=== PATIENT | male | born 1955 | race Caucasian/White ===

== ENCOUNTER 2020-11-17 22:45 | Emergency (ER) | payer SELFPAY ==
[2020-11-17] MEDS ORDERED: SODIUM CHLORIDE 0.9% 1000ML 1,000 ML IVS ONE (22:53)
[2020-11-17] MEDS ORDERED: SODIUM CHLORIDE 0.9% (FLUSH) 10 ML SYG IV PRN (22:53)
--- NOTE | 2020-11-18 01:25 | RAD ---
EXAM DESCRIPTION: X-ray single view chest. CLINICAL HISTORY: 64 years Male, shortness of breath, fever COMPARISON: None. TECHNIQUE: Single portable x-ray view of the chest performed on 11/18/2020 at 1:04 AM FINDINGS: The lungs are well-expanded. There is mild patchy interstitial prominence bilaterally with volume loss in the left lung base. Findings are nonspecific but could reflect edema, atelectasis, fibrosis and/or inflammatory changes. There is no evidence of a pneumothorax. The cardiac silhouette is normal in size and configuration. The mediastinal contours are normal. No acute osseous abnormality is identified. There are old bilateral rib fractures. There are remote postsurgical changes of the cervical spine. There are old bilateral clavicle fractures. No acute soft tissue abnormalities are seen. Lines and tubes: A tracheostomy cannula is present which terminates below the thoracic inlet and above the gurpreet. The tip is located approximately 6.8 cm above the gurpreet. IMPRESSION: 1. Mild patchy interstitial prominence bilaterally and volume loss in the left lung base. Findings are nonspecific and may reflect edema, atelectasis, fibrosis or inflammatory changes. 2. Old bilateral rib fractures and clavicle fractures. 3. The tip of the endotracheal tube terminates approximately 6.8 cm above the gurpreet and below the thoracic inlet. Electronically signed by: Breann Mistry DO 11/18/2020 1:23 AM [facility]
--- NOTE | 2020-11-18 01:40 | ED.PDOC ---
History of Present Illness - General Chief Complaint: Respiratory Problem Stated Complaint: low o2 sat Time Seen by Provider: 11/17/20 22:53 Source: RN notes reviewed, RN/MD, EMS Exam Limitations: clinical condition, physical impairment - History of Present Illness Initial Comments: The patient is a 64 year old transferred from [facility] for hypoxia. He is trach and vent dependent, currently being treated for pneumonia. The patient is non-verbal and unable to provide any history or complaints. Per EMS report, [facility] because the patient was noted to be febrile with hypoxia to mid 80s. No other history is available at this time. Home Medications: Ambulatory Orders Fluconazole 200 mg GT DAILY #14 tab 11/18/20 Review of Systems - Review of Systems Unable to Obtain Due To: intubated, clinical condition Past Medical History (General) - Patient Medical History Hx Seizures: No Hx Asthma: No - Vaccination History Hx Tetanus, Diphtheria Vaccination: Yes Hx Influenza Vaccination: Yes Hx Pneumococcal Vaccination: Yes Immunizations Up to Date: Yes - Social History Hx Alcohol Use: No - Activities of Daily Living Group Home/Assisted Living (if applicable):: [facility] Family Medical History - Family History Mother Family History: Unknown Physical Exam - Physical Exam General Appearance: Lethargic, Ill Appearing, Unkempt Eye Exam: bilateral normal ENT Exam: normal ENT inspection Neck: non-tender, supple, normal inspection, trachea midline Respiratory: respiratory distress - tachypneic, rales, rhonchi, other - tracheostomy dependent Cardiovascular/Chest: regular rate, rhythm Gastrointestinal/Abdominal: normal bowel sounds, non tender, soft, no organomegaly, no pulsatile mass, other - G-tube in place, colostomy in place and functioning Extremity: non-tender, normal inspection, no pedal edema Neurologic: other - obtunded, non-verbal, does not follow commands Skin Exam: warm/dry Progress - Progress Progress: 11/18/20 01:43 Patient transferred from [facility] for hypoxia. He is unable to provide any history but is reportedly at his baseline. He is tracheostomy dependent and he is being treated for pneumonia. Maintaining >95% oxygen saturation in the Emergency Department on vent. 11/18/20 02:01 Respiratory panel is negative. Evaluation as above. He has urinary tract infection and is receiving cefepime already via PICC line. His blood pressure has been soft but stable and his oxygenation has been okay on ventilator. No indication for re-admission to the hospital at this time. Will continue outpatie nt ventilator management and antibiotics at [facility]. - Results/Orders Results/Orders: 11/17/20 22:53 IV Care:Saline Lock per Protoc QSHIFT Telemetry .ONCE Sodium Chloride 0.9% (Flush) [Saline Flush Syringe] 10 ml IV PRN PRN URINE CULTURE W/COLONY COUNT Stat EKG Stat Pulse Ox Stat 11/17/20 23:15 BLOOD CULTURE Stat 11/17/20 23:59 URINE CULTURE W/COLONY COUNT Stat Laboratory Results - last 24 hr 11/17/20 11/17/20 11/17/20 22:53 23:15 23:15 WBC 19.7 H RBC 4.31 L Hgb 11.2 L Hct 36.3 L MCV 84.1 MCH 25.9 L MCHC 30.8 L RDW 19.9 H Plt Count 152 MPV 8.1 Absolute Neuts (auto) 18.10 H Absolute Lymphs (auto) 1.00 Absolute Monos (auto) 0.30 Absolute Eos (auto) 0.10 Absolute Basos (auto) 0.10 Neutrophils % 92.1 H Lymphocytes % 5.3 L Monocytes % 1.7 L Eosinophils % 0.6 L Basophils % 0.3 PT INR PTT (SP) pCO2 63 H pO2 86 HCO3 33.5 ABG pH 7.335 L ABG O2 Saturation 95.4 ABG Base Excess 5.9 ABG Deoxyhemoglobin 4.6 Oxyhemoglobin % 94.5 Carboxyhemoglobin % 0.6 Methemoglobin % Sat 0.3 Calc Total Hemoglobin 12.1 L Sodium 149 H Potassium 4.4 Chloride 111 Carbon Dioxide 32 H Anion Gap 10.4 L BUN 39 H Creatinine < 0.40 L BUN/Creatinine Ratio 97.0 H Random Glucose 119 H Serum Osmolality 306.7 H Lactic Acid Calcium 9.5 Total Bilirubin 0.3 AST 22 ALT 32 Alkaline Phosphatase 63 Creatine Kinase 103 CK-MB (CK-2) 2.7 CK-MB (CK-2) % Not Reportable Troponin I 0.02 Serum Total Protein 8.2 Albumin 2.5 L Globulin 5.7 H Albumin/Globulin Ratio 0.4 L Urine Color Urine Appearance Urine pH Ur Specific [place] Urine Protein Urine Glucose (UA) Urine Ketones Urine Blood Urine Nitrite Urine Bilirubin Urine Urobilinogen Ur Leukocyte Esterase Urine RBC Urine WBC Ur Epithelial Cells Urine Bacteria Urine Mucus Urine Yeast 11/17/20 11/17/20 11/17/20 23:15 23:15 23:59 WBC RBC Hgb Hct MCV MCH MCHC RDW Plt Count MPV Absolute Neuts (auto) Absolute Lymphs (auto) Absolute Monos (auto) Absolute Eos (auto) Absolute Basos (auto) Neutrophils % Lymphocytes % Monocytes % Eosinophils % Basophils % PT 11.3 H INR 1.14 PTT (SP) 21.4 L pCO2 pO2 HCO3 ABG pH ABG O2 Saturation ABG Base Excess ABG Deoxyhemoglobin Oxyhemoglobin % Carboxyhemoglobin % Methemoglobin % Sat Calc Total Hemoglobin Sodium Potassium Chloride Carbon Dioxide Anion Gap BUN Creatinine BUN/Creatinine Ratio Random Glucose Serum Osmolality Lactic Acid 1.3 Calcium Total Bilirubin AST ALT Alkaline Phosphatase Creatine Kinase CK-MB (CK-2) CK-MB (CK-2) % Troponin I Serum Total Protein Albumin Globulin Albumin/Globulin Ratio Urine Color Yellow Urine Appearance Sl cloudy Urine pH 5.0 Ur Specific [place] >= 1.030 Urine Protein 30 Urine Glucose (UA) Negative Urine Ketones Negative Urine Blood Trace-lysed H Urine Nitrite Negative Urine Bilirubin Negative Urine Urobilinogen 0.2 Ur Leukocyte Esterase Small H Urine RBC 3-5 H Urine WBC Tntc H Ur Epithelial Cells 0-1 Urine Bacteria 1+ Urine Mucus Moderate Urine Yeast 3+ budding 11/18/20 01:00 WBC RBC Hgb Hct MCV MCH MCHC RDW Plt Count MPV Absolute Neuts (auto) Absolute Lymphs (auto) Absolute Monos (auto) Absolute Eos (auto) Absolute Basos (auto) Neutrophils % Lymphocytes % Monocytes % Eosinophils % Basophils % PT INR PTT (SP) pCO2 pO2 HCO3 ABG pH ABG O2 Saturation ABG Base Excess ABG Deoxyhemoglobin Oxyhemoglobin % Carboxyhemoglobin % Methemoglobin % Sat Calc Total Hemoglobin Sodium Potassium Chloride Carbon Dioxide Anion Gap BUN Creatinine BUN/Creatinine Ratio Random Glucose Serum Osmolality Lactic Acid 1.1 Calcium Total Bilirubin AST ALT Alkaline Phosphatase Creatine Kinase CK-MB (CK-2) CK-MB (CK-2) % Troponin I Serum Total Protein Albumin Globulin Albumin/Globulin Ratio Urine Color Urine Appearance Urine pH Ur Specific [place] Urine Protein Urine Glucose (UA) Urine Ketones Urine Blood Urine Nitrite Urine Bilirubin Urine Urobilinogen Ur Leukocyte Esterase Urine RBC Urine WBC Ur Epithelial Cells Urine Bacteria Urine Mucus Urine Yeast Medical Decision Making: Patient presents from [facility] where he is intubated and being treated for pneumonia/UTI with cefepime. Primary concern for hypoxia. In the ED he has been able to maintain his oxygen saturation at appropriate levels. His blood pressure has been soft but stable. he does not have any lactic acidosis or evidence for end-organ damage. He was given normal saline and evaluated for COVID which was negative, no indication for steroids or other escalation of care. He has pulmonary infiltrates and urinary tract infection, is currently being treated with cefepime. I do not think he would benefit significantly from re-admission to the hospital at this time, okay to return to [facility] and continue current treatment plan. - EKG/XRAY/CT Comments: 2310 Normal sinus rhythym, nl axis, nl intervals, no STEMI Departure - Departure Clinical Impression: Respiratory failure Qualifiers: Chronicity: chronic Respiratory failure complication: hypoxia and hypercapnia Qualified Code(s): J96.11 - Chronic respiratory failure with hypoxia Urinary tract infection Qualifiers: Urinary tract infection type: catheter-associated UTI Indwelling urinary catheter type: indwelling urethral catheter Encounter type: initial encounter Qualified Code(s): T83.511A - Infection and inflammatory reaction due to indwelling urethral catheter, initial encounter Pneumonia Qualifiers: Pneumonia type: due to unspecified organism Laterality: bilateral Lung location: unspecified part of lung Qualified Code(s): J18.9 - Pneumonia, unspecified organism Time of Disposition: 02:07 Disposition: Discharge to SNF Condition: Fair Departure Forms: ED Discharge - Pt. Copy, Patient Portal Self Enrollment Diet: resume usual diet Activity: increase activity as tolerated Referrals: FLOR DUDLEY [Primary Care Provider] - 1-2 Weeks Prescriptions: Fluconazole 200 mg GT DAILY #14 tab Home Medications: Ambulatory Orders Fluconazole 200 mg GT DAILY #14 tab 11/18/20
[2020-11-18] MEDS ORDERED: FLUCONAZOLE 100 MG TAB GT ONE (02:10)
[2020-11-18 03:06] VITALS: BP 104/62; TEMP 99; O2SAT 95
== END 2020-11-18 03:08 ==
LOC: ER 22:45
DX: R51.9 Headache, unspecified (principal)
CPT/HCPCS: 36415; 36600; 71045; 80053; 81001; 82550; 82553; 82803; 82805; 83605; 84484; 85025; 85610; 85730; 87040; 87086; 87486; 87581; 87633; 87635; 93005; 94002; J7030

== ENCOUNTER 2020-11-22 02:16 | Emergency (ER) | payer SELFPAY ==
[2020-11-22] MEDS ORDERED: SODIUM CHLORIDE 0.9% (FLUSH) 10 ML SYG IV PRN ×2 (02:24→03:50)
[2020-11-22] MEDS ORDERED: SODIUM CHLORIDE 0.9% 1000ML 1,000 ML IVS ONE (02:24)
[2020-11-22] MEDS ORDERED: CEFEPIME 1 GM in SODIUM CHLORIDE 0.9% 50ML 50 ML IVPB ONE (02:25)
[2020-11-22] MEDS ORDERED: VANCOMYCIN HCL INJ 1,000 MG in SODIUM CHLORIDE 0.9% 250ML 250 ML IVPB ONE (02:26)
[2020-11-22] MEDS ORDERED: ACETAMINOPHEN SUPPOSITORY 650 MG PR ONE ×2 (02:31→02:32)
--- NOTE | 2020-11-22 02:32 | ED.PDOC ---
History of Present Illness - General Time Seen by Provider: 11/22/20 02:23 Source: RN notes reviewed, Vital Signs reviewed, EMS notes reviewed Additional Information: This is a 64-year-old male patient full code that presents to the ER because of altered mental status, low blood pressure, fever. This patient has been treated for excessive for the past [address] [facility], his mental status is usually more responsive but he is showing today, patient is been like this since 7 PM last night, patient responds to painful stimuli, but is tachypneic cold to touch, mottled skin. Chronic medical history of osteomyelitis, acute on chronic respiratory failure, bradycardia, and patient is already on a ventilator and with a tracheostomy - History of Present Illness Timing/Duration: other - since last nightr Improving Factors: nothing Worsening Factors: nothing Allergies/Adverse Reactions: Allergies NO KNOWN ALLERGY Allergy (Verified 11/22/20 02:31) Home Medications: Ambulatory Orders Fluconazole 200 mg GT DAILY #14 tab 11/18/20 Review of Systems - Review of Systems Constitutional: States: fever Unable to Obtain Due To: intubated Past Medical History (General) - Patient Medical History Hx Seizures: No Hx Asthma: No - Vaccination History Hx Tetanus, Diphtheria Vaccination: Yes Hx Influenza Vaccination: Yes Hx Pneumococcal Vaccination: Yes - Social History Hx Alcohol Use: No Family Medical History - Family History Mother Family History: Unknown Physical Exam - Physical Exam General Appearance: Other - acutelly ill Eye Exam: bilateral normal - sluggish Neck: supple Respiratory: other - tachypneic, tracheostomy Cardiovascular/Chest: other - diminished pulses Peripheral Pulses: radial,right: 1+, radial,left: 1+ Gastrointestinal/Abdominal: normal bowel sounds, no organomegaly, no pulsatile mass Back Exam: normal inspection Extremity: normal inspection, no pedal edema Neurologic: other - responds to painful stimuli Skin Exam: mottled, other, pallor Progress - Progress Progress: 64-year-old male patient, with history of respiratory failure on tracheostomy on the vent, presents to the ER because of low blood pressure respiratory distress altered mental status. This patient has been treated at the [facility] for sepsis for the past 2 weeks, he has been on cefepime, patient on physical examination looks acutely ill cool to touch mottled skin grade 2 sacral ulcer, and only withdraws to pain, Patient did have a fever here. They did a sepsis protocol, 30 cc/kg lactic acid was ordered blood cultures COVID-19 swab chest x- rays, urine, ekg and troponins. Because patient blood pressure was low he was put immediately on Levophed using a trilumen right internal jugular vein central catheter, patient found cefepime and vancomycin and rectal Tylenol. This patient will be treated for sepsis, obviously pending transfer to high-level care facility that might have a ICU available to take care of this patient. Inverted T waves in leads II, III, aVF and V6 11/22/20 03:18 11/22/20 04:00 Patient is COVID-19 negative, but patient does have evidence of multiple organ failure, with respiratory failure, cardiovascular collapse, and renal failure, patient potassium 7.50 hyperkalemia treatment was initiated, patient has evidence of elevated BUN and creatinine and also evidence of cardiac involvement with elevated troponins. Which could be due to sepsis itself pulmonary emboli or an actual heart attack Aspirin for acute coronary syndrome, [email or web address] will also is adequate treatment for non-ST elevation IL but also for potential PE since we cannot do a CTA due to the elevated kidney function, with still pending acceptance to an ICU Procedures - Central Line Right Internal jugular vein Central Line Lumen: triple Central Line Procedure Prep: betadine prep Anesthesia: local cc's of anesthesia: 5 Complications: none Central Line Post Position: sutured, good blood return, position confirmed w/ CXR Progress: sonoguided central line placement was done without any complications and under aseptic conditions Departure - Departure Clinical Impression: Multiple organ failure Sepsis Qualifiers: Sepsis type: sepsis due to unspecified organism Sepsis acute organ dysfunction status: unspecified Qualified Code(s): A41.9 - Sepsis, unspecified organism Disposition: Discharge to Home or Self Care Condition: Serious Referrals: FLOR DUDLEY [Primary Care Provider] - 1-2 Weeks Home Medications: Ambulatory Orders Fluconazole 200 mg GT DAILY #14 tab 11/18/20 Transfer to Outside Facility - Transfer Information Decision to Transfer Date: 11/22/20 Decision to Transfer Time: 03:22 Reason for Transfer: ICU - pending acceptance
[2020-11-22] MEDS ORDERED: NOREPINEPHRINE BITARTRATE 4 MG in DEXTROSE 5% 250ML 250 ML IVPB SCH (03:00)
[2020-11-22] MEDS ORDERED: SODIUM CHLORIDE 0.9% 1000ML 1,300 ML IVS ONE (03:16)
--- NOTE | 2020-11-22 03:41 | RAD ---
CHEST X-RAY 1 VIEW on 11/22/2020 CLINICAL INDICATION: Fever COMPARISON: 11/18/2020 FINDINGS: Fusion hardware is partially imaged in the lower cervical and upper thoracic spine. ET tube has been removed with a new tracheostomy tube tip in the thoracic trachea. Emphysematous changes of the lungs are noted. There has been improvement in bilateral interstitial opacities consistent with improved edema or atypical pneumonia. Heart is within normal limits for size. A right IJ catheter tip is in the SVC. Old bilateral rib fractures are noted. No pneumothorax is noted. IMPRESSION: Improvement in bilateral edema and/or pneumonia. Electronically signed by: Loco Delgado 11/22/2020 3:39 AM [employer] [facility]
[2020-11-22] MEDS ORDERED: ALBUTEROL SULFATE 2.5 MG/3 ML VIAL NEB ONE (03:50)
[2020-11-22] MEDS ORDERED: SOD POLYSTYRENE SULFONATE 15 GM/60 ML BTTL PO ONE (03:50)
[2020-11-22] MEDS ORDERED: CALCIUM GLUCONATE INJ 1 GM/10 ML VIAL IV ONE (03:50)
[2020-11-22] MEDS ORDERED: DEXTROSE 50% 25 GM/50 ML SYG IV ONE (03:50)
[2020-11-22] MEDS ORDERED: INSULIN, REG.(HUMAN) 100 U/ML VIAL IV ONE (03:50)
[2020-11-22] MEDS ORDERED: ASPIRIN SUPP 600 MG SUP PR ONE (03:58)
[2020-11-22] MEDS ORDERED: ENOXAPARIN SODIUM 80 MG/0.8 ML SYG SUBCU ONE (04:05)
[2020-11-22 05:36] VITALS: O2SAT 100
[2020-11-22 05:38] VITALS: TEMP 101.4
[2020-11-22 06:17] VITALS: BP 78/52
== END 2020-11-22 06:18 | disposition home or self-care (01) ==
LOC: ER 02:16
DX: A41.9 Sepsis, unspecified organism (principal); J96.00 Acute respiratory failure, unspecified whether with hypoxia or hypercapnia; N17.9 Acute kidney failure, unspecified; I24.9 Acute ischemic heart disease, unspecified; I95.9 Hypotension, unspecified; Z20.822 Contact with and (suspected) exposure to COVID-19; Z93.0 Tracheostomy status; Z99.11 Dependence on respirator [ventilator] status
CPT/HCPCS: 36415; 71045; 80053; 81001; 82550; 82553; 83605; 84484; 85025; 85379; 85610; 85730; 87040; 87086; 87635; 93005; 94002; 94640; A4216; J0692; J1650; J3370; J7030; J7050; J7060; J7611; J7799